=== PATIENT | female | born 1995 | race Two or more races ===

== ENCOUNTER 2017-09-25 15:00 | Emergency (ER) | payer MEDICAID ==
[~2017-09-25] VITALS: Ht 167.6 cm; Wt 54.4 kg
[2017-09-25 15:02] VITALS: BP 107/65
== END 2017-09-25 16:40 | disposition home or self-care (01) ==
LOC: ER 15:03
DX: N92.1 Excessive and frequent menstruation with irregular cycle (principal)
CPT/HCPCS: 36415; 84702-TC; A4606; Z7610